=== PATIENT | female | born 1995 | race Two or more races ===

== ENCOUNTER 2025-04-30 12:16 | Emergency (ER) | payer MEDICAID ==
[~2025-04-30] VITALS: Ht 167.6 cm; Wt 127.9 kg
[~2025-04-30 12:16] MED LIST: CIPR-173 PO; IBUP-1454 PO
[2025-04-30 12:18] VITALS: TEMP 98.1
--- NOTE | 2025-04-30 13:22 | ED.PDOC ---
SUPERVISOR GLYCERIN HPI Comments 29 y.o female presents to the ED for a chief complaint of ongoing vaginal b leeding x 8 months. Patient reports on February 2025 she consulted with an OB who did a biopsy confirming endometriosis and precancer and placed her on progestogen around 03/15/25. Patient reports bleeding has been continuously, states the past couple of days worsened with large blood clot output. Today she was at work and became very lightheaded prompting her visit to the ER. She de nies any abdominal pain, nausea, vomiting, diarrhea, fever or chills. Chief Complaint: Vaginal Bleed Time Seen by MD: 13:03 Reviewed Notes: Nurses Notes, Medications, Allergies Allergies: Coded Allergies: Penicillins (Verified Allergy, Unknown, 08/15/23) Home Meds Active Scripts Ibuprofen (Ibuprofen) 600 Mg Tab, 1 TAB PO TID for 7 Days, #21 TAB Prov:LUCIANA AGEE DO 08/18/23 Ciprofloxacin Hcl (Cipro) 500 Mg Tab, 1 TAB PO BID, #14 TAB Prov:VAUGHN MCKEON MD 08/15/23 Information Source: Patient Mode of Arrival: Wheelchair Timing: Months Severity: Moderate Vaginal Discharge: None Bleeding Quality: Bright Red, Clotted Vaginal Mass: None Sexual Activity: Neither Last Consensual [place]: Unknown Symptoms of Possible : None Associated Signs and Symptoms: Vaginal Bleeding, Faintness Past Medical History PAST MEDICAL HISTORY: Cancer Surgical History: Denies all surgeries GSA COORDINATOR History: Denies all GSA COORDINATOR Hx Family History Family History: No family hx of DM, No family hx of Heart narendra, No family hx of HTN, No family hx ofKidney narendra, No family hx of Liver narendra, No family hx of Lung narendra, No family hx of Stroke, Family hx of Cancer Social History Smoker: Non-Smoker Alcohol: Denies ETOH Use Drugs: Denies Drug Use Lives In: Home Constitutional: denies: chills, diaphoresis, fatigue, fever, malaise, sweats, weakness, others EENTM: denies: blurred vision, double vision, ear bleeding, ear discharge, ear drainage, ear pain, ear ringing, eye pain, eye redness, hearing loss, mouth pain, mouth swelling, nasal discharge, nose bleeding, nose congestion, nose pain, photophobia, tearing, throat pain, throat swelling, voice changes, others Respiratory: denies: cough, hemoptysis, orthopnea, SOB at rest, shortness of breath, SOB with excertion, stridor, wheezing, others Cardiovascular: denies: chest pain, dizzy spells, diaphoresis, Dyspnea on exertion, edema, irregular heart beat, left arm pain, lightheadedness, palpitations, PND, syncope, others Gastrointestinal: denies: abdomen distended, abdominal pain, blood streaked bowels, constipated, diarrhea, dysphagia, difficulty swallowing, hematemesis, melena, nausea, poor appetite, poor fluid intake, rectal bleeding, rectal pain, vomiting, others Genitourinary: reports: abnormal vagina bleeding; denies: burning, dyspareunia, dysuria, flank pain, frequency, hematuria, incontinence, pain, , vagina discharge, urgency, others Neurological: denies: dizziness, fainting, headache, left sided numbness, left sided weakness, numbness, paresthesia, pre-existing deficit, right sided numbness, right sided weakness, seizure, speech problems, tingling, tremors, weakness, others Musculoskeletal: denies: back pain, gout, joint pain, joint swelling, muscle pain, muscle stiffness, neck pain, others Integumetry: denies: bruises, change in color, change in hair/nails, dryness, laceration, lesions, lumps, rash, wounds, others Allergic/Immunocompromised: denies: Difficulty Healing, Frequent Infections, Hives, Itching, others Hematologic/Lymphatic: reports: blood clots; denies: anemia, easy bleeding, easy bruising, swollen glands, others Endocrine: denies: excessive hunger, excessive sweating, excessive thirst, excessive urination, flushing, intolerance to cold, intolerance to heat, unexplained weight gain, unexplained weight loss, others Psychiatric: denies: anxiety, bipolar disorder, depression, hopeless, panic disorder, schizophrenia, sleepless, suicidal, others All Other Systems: Reviewed and Negative Physical Exam General Appearance: No Apparent Distress HEENT: Normal ENT Inspection, Pharynx Normal, TMs Normal Neck: Full Range of Motion, Non-Tender, Normal, Normal Inspection Respiratory: Chest Non-Tender, Lungs Clear, No Accessory Muscle Use, No Respiratory Distress, Normal Breath Sounds Cardiovascular: No Edema, No JVD, No Murmur, No Gallop, Normal Peripheral Pulses, Regular Rate/Rhythm Breast Exam: Deferred Gastrointestinal: No Organomegaly, Non Tender, No Pulsatile Mass, Normal Bowel Sounds, Soft Genitalia: Deferred Pelvic: Deferred Rectal: Deferred Extremities: No calf tenderness, Normal capillary refill, Normal inspection, Normal range of motion, Non-tender, No pedal edema Musculoskeletal : Apperance: Normal Neurologic: Alert, director informatics II-XII nml as Tested, No Motor Deficits, Normal Affect, Normal Mood, No Sensory Deficits Cerebellar Function: Normal Reflexes: Normal Skin: Dry, Normal Color, Warm Lymphatic: No Adenopathy Was a procedure done? Was a procedure done?: No Differential Diagnosis (GSA COORDINATOR) Vaginal Bleeding: Blood Loss Anemia, Cervicitis, Dysmenorrhea, Hormonal, Menorrhagia, Menometrorrhagia, Menstrual Bleeding, Myomatous Uterus, PID, Placenta Previa, Precipitous Hct, UTI, Vaginitis X-Ray, Labs, Meds, VS Vital Signs Date Time Temp Pulse Resp B/P (MAP) Pulse Ox O2 Delivery O2 Flow Rate FiO2 04/30/25 14:29 98 17 154/107 (123) 99 151/105 (120) 04/30/25 12:18 98.1 110 18 154/122 100 98.1 Lab Test 04/30/25 13:18 Range/Units White Blood Count 9.7 4.4-10.8 10^3/uL Red Blood Count 4.06 4.0-5.20 10^6/uL Hemoglobin 11.5 L 12.2-16.2 g/dL Hematocrit 34.6 L 36.0-46.0 % Mean Corpuscular Volume 85.3 80.0-100.0 fL Mean Corpuscular Hemoglobin 28.2 28.0-32.0 pg Mean Corpuscular Hemoglobin Concent 33.1 32.0-36.0 g/dL Red Cell Distribution Width 14.1 11.8-14.3 % Platelet Count 399 140-450 10^3/uL Mean Platelet Volume 7.2 6.9-10.8 fL Neutrophils (%) (Auto) 69.5 37.0-80.0 % Lymphocytes (%) (Auto) 23.3 10.0-50.0 % Monocytes (%) (Auto) 5.6 0.0-12.0 % Eosinophils (%) (Auto) 0.9 0.0-7.0 % Basophils (%) (Auto) 0.7 0.0-2.0 % Neutrophils # (Auto) 6.8 1.6-8.6 10 ^3/uL Lymphocytes # (Auto) 2.3 0.4-5.4 10 ^3/uL Monocytes # (Auto) 0.5 0-1.3 10 ^3/uL Eosinophils # (Auto) 0.1 0-0.8 10 ^3/uL Basophils # (Auto) 0.1 0-0.2 10 ^3/uL Nucleated Red Blood Cells 0.0 % Prothrombin Time 10.7 9.3-11.8 sec Prothrombin Time INR 1.01 0.9-1.15 Activated Partial Thromboplast Time 29.0 24.5-34.5 SEC Beta HCG, Quantitative 1.1 L 1.5-4.2 mIU/mL COMPARISON: US PELVIC on DOS: 08/18/23 IMPRESSION: 1. Grossly unremarkable pelvic ultrasound. 2. Mild endometrial thickening. 3. Small amount of fluid in the cul-de-sac. The patient's CBC shows mild anemia with a hemoglobin of 11.5 and hematocrit of 34.6 The chemistry panel is within normal limits The quantitative hCG is 1.1 The patient is to continue taking her medication and following up with her OBGYN The patient will return to the emergency department's the condition worsens. Images Reviewed?: Images reviewed and evaluated by me Time of 1ST Reevaluation: 13:18 Reevaluation 1ST: Unchanged Patient Education/Counseling: Diagnosis, Treatment, Prognosis, Need For Follow Up Family Education/Counseling: Diagnosis, Treatment, Prognosis, Need For Follow Up Departure 1 Departure Time of Disposition: 15:17 Impression: Primary Impression: Abnormal vaginal bleeding Disposition: 01 HOME / SELF CARE / HOMELESS Condition: Fair Discharged With: Self, Significant Other Critical Care Note Critical Care Time?: No Stability Stability form required: No I personally scribed for VAUGHN MCKEON MD ([email or web address]) on 04/30/25 at 13:22. Electronically submitted by Dori Tejeda ([facility]). I personally scribed for VAUGHN MCKEON MD ([email or web address]) on 04/30/25 at 15:12. Electronically submitted by Dori Tejeda ([facility]). VAUGHN MCKEON MD Apr 30, 2025 13:22
[2025-04-30 13:38] LABS: Hematocrit 34.6 % (36.0-46.0); Hemoglobin 11.5 g/dL (12.2-16.2); Mean Corpuscular Hemoglobin 28.2 pg (28.0-32.0); Mean Corpuscular Volume 85.3 fL (80.0-100.0); Nucleated Red Blood Cells % 0.0 %
[2025-04-30 13:52] LABS: INR 1.01 (0.9-1.15); Partial Thromboplastin Time 29.0 SEC (24.5-34.5); Prothrombin Time 10.7 sec (9.3-11.8)
--- NOTE | 2025-04-30 14:15 | DVH ---
INDICATION: vag bleeding TECHNIQUE: Multiple real-time grayscale transabdominal sonographic images along with color and duplex Doppler of the uterus and ovaries were obtained. COMPARISON: US PELVIC on DOS: 08/18/23 FINDINGS: The uterus measures 7.7 x 5.2 x 4.9 cm. The endometrial stripe measures 1.1 cm. The right ovary measures 3.1 x 2.7 x 2.2 cm. Volume of the right ovary is 9.4 mL The left ovary measures 3 x 1.7 x 2 cm. Volume of the left ovary is 5.4 mL Subsequent color and duplex Doppler interrogation of the ovaries demonstrated symmetric vascular flow to both ovaries, though this does not exclude the possibility of torsion due to the dual blood supply. IMPRESSION: 1. Grossly unremarkable pelvic ultrasound. 2. Mild endometrial thickening. 3. Small amount of fluid in the cul-de-sac.
[2025-04-30 14:29] VITALS: BP 151/105; PULSE 98; RESP 17; O2SAT 99
== END 2025-04-30 16:15 | disposition home or self-care (01) ==
LOC: ER 12:16
DX: N93.9 Abnormal uterine and vaginal bleeding, unspecified (principal); Z79.899 Other long term (current) drug therapy
CPT/HCPCS: 36415; 76830; 76856; 84702; 85025; 85610; 85730